=== PATIENT | female | born 1970 | race Caucasian/White ===

== ENCOUNTER 2017-11-28 12:44 | Emergency (ER) | payer OTHER ==
--- NOTE | 2017-11-28 13:33 | ER Document Report ---
ED Medical Screen (RME) - General Chief Complaint: Abdominal Pain Stated Complaint: STOMACH PAIN Time Seen by Provider: 11/28/17 13:23 Mode of Arrival: Ambulatory Information source: Patient Notes: 47 y.o female presents to the ED with adb distention, nausea and RUQ pain since yesterday. She describes the pain as a sharp pain without any radiation. She reports a sour taste in her mouth. She denies any trauma or fall, vomiting, diarrhea or constipation. She denies ever having pain like this in the past. Pt still has her gallbladder. She reports having a partial lobectomy on her LT lung. I have greeted and performed a rapid initial assessment of the patient. A comprehensive ED assessment and evaluation of the patient, analysis of test results, and completion of the medical decision making process will be conducted by additional ED providers. TRAVEL OUTSIDE OF THE [place] IN LAST 30 DAYS: No - Related Data Allergies/Adverse Reactions: No Known Allergies Allergy (Verified 11/28/17 12:46) Past Medical History - General Information source: Patient Pulmonary Medical History: Denies: Hx Tuberculosis Malignancy Medical History: Reports: Hx Lung Cancer Psychiatric Medical History: Denies: Hx Depression Past Surgical History: Reports: Hx Section, Hx Hysterectomy, Hx Tonsillectomy - Immunizations Hx Diphtheria, Pertussis, Tetanus Vaccination: Yes Review of Systems - Review of Systems Constitutional: No symptoms reported EENT: No symptoms reported Cardiovascular: No symptoms reported Respiratory: No symptoms reported Gastrointestinal: See HPI, Abdomen distended, Abdominal pain, Nausea. denies: Diarrhea, Vomiting, Constipation Genitourinary: No symptoms reported Female Genitourinary: No symptoms reported Musculoskeletal: No symptoms reported Skin: No symptoms reported Hematologic/Lymphatic: No symptoms reported Neurological/Psychological: No symptoms reported -: Yes All other systems reviewed and negative Physical Exam - Vital signs Vitals: Temp Pulse Resp BP Pulse Ox 98.1 F 98 22 H 147/111 H 98 11/28/17 12:56 11/28/17 12:56 11/28/17 12:56 11/28/17 12:56 11/28/17 12:56 - Notes Notes: Physical Exam: General: Alert, appears well. HEENT: Normocephalic. Atraumatic. PERRLA. Extraocular movements intact. Oropharynx clear. Neck: Supple. Respiratory: No respiratory distress. Abdominal: No pain with lower palpation. RUQ and epigastric region tender to palpation. Extremities: Moves all four extremities. Neurological: Normal cognition. AAOx4. Normal speech. Psychological: Normal affect. Normal Mood. Skin: Warm. Dry. Normal color. Course - Vital Signs Vital signs: Temp Pulse Resp BP Pulse Ox 98.1 F 98 22 H 147/111 H 98 11/28/17 12:56 11/28/17 12:56 11/28/17 12:56 11/28/17 12:56 11/28/17 12:56 Scribe Documentation - Scribe Written by Shyann:: Mercedez Smith, Shyann 11/28/17 [id number] acting as scribe for :: Oscar
[2017-11-28 14:06] LABS: ABSOLUTE EOSINOPHILS # (AUTO) 0.4 10^3/uL (0.0-0.6); ABSOLUTE LYMPHOCYTES (AUTO) 1.7 10^3/uL (0.5-4.7); ABSOLUTE MONOCYTES (AUTO) 0.4 10^3/uL (0.1-1.4); BASOPHILS % (AUTO) 0.6 % (0-2); EOSINOPHILS % (AUTO) 6.3 % (0-6); HEMOGLOBIN 15.3 g/dL (12.0-15.5); LYMPHOCYTES % (AUTO) 25.6 % (13-45); MEAN CORPUSCULAR HGB CONC 33.4 g/dL (32.0-36.0); MEAN CORPUSCULAR VOLUME 90 fl (80-97); PLATELET COUNT 348 10^3/uL (150-450); RED BLOOD COUNT 5.12 10^6/uL (3.72-5.28); SEGMENTED NEUTROPHILS % (AUTO) 61.5 % (42-78); TOTAL CELLS COUNTED % (AUTO) 100 %; WHITE BLOOD COUNT 6.6 10^3/uL (4.0-10.5)
[2017-11-28 14:17] LABS: APPEARANCE,URINE CLEAR; BILIRUBIN,URINE NEGATIVE (NEGATIVE); COLOR,URINE YELLOW; GLUCOSE, URINE NEGATIVE (NEGATIVE); KETONES,URINE NEGATIVE (NEGATIVE); LEUKOCYTE ESTERASE,URINE NEGATIVE (NEGATIVE); NITRITE,URINE NEGATIVE (NEGATIVE); PROTEIN,URINE NEGATIVE (NEGATIVE); URINE SPECIFIC GRAVITY 1.014; UROBILINOGEN,URINE NEGATIVE mg/dL (<2.0)
[2017-11-28 14:27] LABS: ALANINE AMINOTRANSFERASE 95 U/L (9-52); ALKALINE PHOSPHATASE 145 U/L (38-126); ANION GAP 15 (5-19); ASPARTATE AMINO TRANSFERASE 72 U/L (14-36); BILIRUBIN,DIRECT 0.5 mg/dL (0.0-0.4); BILIRUBIN,TOTAL 0.5 mg/dL (0.2-1.3); BLOOD UREA NITROGEN 9 mg/dL (7-20); CALCIUM 10.2 mg/dL (8.4-10.2); CARBON DIOXIDE 24 mmol/L (22-30); CHLORIDE 105 mmol/L (98-107); GLUCOSE 113 mg/dL (75-110); LIPASE 46.9 U/L (23-300); SODIUM 143.6 mmol/L (137-145)
[2017-11-28 14:29] LABS: POTASSIUM 3.9 mmol/L (3.6-5.0)
--- NOTE | 2017-11-28 15:05 | RADIOLOGY REPORT (SQ) ---
EXAM DESCRIPTION: CHEST SINGLE VIEW COMPLETED DATE/TIME: 11/28/2017 2:43 pm REASON FOR STUDY: RUQ pain COMPARISON: AP chest 02/26/2014 EXAM PARAMETERS: NUMBER OF VIEWS: One view. TECHNIQUE: Single frontal radiographic view of the chest acquired. RADIATION DOSE: NA LIMITATIONS: None. FINDINGS: LUNGS AND PLEURA: No opacities, masses or pneumothorax. No pleural effusion. MEDIASTINUM AND HILAR STRUCTURES: No masses. Contour normal. HEART AND VASCULAR STRUCTURES: Heart normal in size. Normal vasculature. BONES: No acute findings. HARDWARE: None in the chest. OTHER: No other significant finding. IMPRESSION: NO ACUTE RADIOGRAPHIC FINDING IN THE CHEST. TECHNICAL DOCUMENTATION: JOB ID: [id number] [employer]- All Rights Reserved Reading location - IP/workstation name: [email or web address]
--- NOTE | 2017-11-28 15:11 | RADIOLOGY REPORT (SQ) ---
EXAM DESCRIPTION: U/S ABDOMEN LIMITED W/O DOP COMPLETED DATE/TIME: 11/28/2017 2:44 pm REASON FOR STUDY: epigastric and RUQ pain COMPARISON: CT abdomen pelvis 12/26/2013 Right upper quadrant ultrasound 12/04/2011 TECHNIQUE: Dynamic and static grayscale images acquired of the abdomen and recorded on PACS. Additio nal selected color Doppler and spectral images recorded. LIMITATIONS: Midline bowel gas FINDINGS: PANCREAS: Not well seen LIVER: No masses. Echotexture normal. LIVER VASCULATURE: Normal directional flow of the main portal vein and hepatic veins. GALLBLADDER: No stones. Normal wall thickness. No pericholecystic fluid. ULTRASOUND-DETECTED WEEMS'S SIGN: Negative. INTRAHEPATIC DUCTS AND COMMON DUCT: CBD and intrahepatic ducts normal caliber. No filling defects. INFERIOR VENA CAVA: Not well seen AORTA: Limited visualization. No abdominal aortic aneurysm RIGHT KIDNEY: Normal size. Normal echogenicity. No solid or suspicious masses. No hydronephrosis. No calcifications. PERITONEAL AND RIGHT PLEURAL SPACE: No ascites or effusions. OTHER: No other significant findings. IMPRESSION: NORMAL RIGHT UPPER QUADRANT ULTRASOUND. TECHNICAL DOCUMENTATION: JOB ID: [id number] [employer]- All Rights Reserved Reading location - IP/workstation name: [email or web address]
[2017-11-28] MEDS ORDERED: ONDANSETRON 4 MG TAB.RAPDIS PO ONE (15:24)
[2017-11-28] MEDS ORDERED: OXYCODONE-ACETAMINOPHEN 5-325 MG TABLET PO ONE (15:24)
--- NOTE | 2017-11-28 15:31 | ER Document Report ---
ED General - General Chief Complaint: Abdominal Pain Stated Complaint: STOMACH PAIN Time Seen by Provider: 11/28/17 13:23 Mode of Arrival: Ambulatory TRAVEL OUTSIDE OF THE [place] IN LAST 30 DAYS: No - HPI Patient complains to provider of: Right upper quadrant pain and distention since yesterday Onset: Yesterday Onset/Duration: Gradual Quality of pain: Pressure, Sharp Severity: Moderate Pain Level: 4 Context: Patient reports right upper quadrant pain started gradually yesterday and has steadily increased. Also reports distention in that area. Patient does have nausea but no vomiting or diarrhea. Food does not aggravate symptoms. Denies fever. Patient states pain radiates to right upper side but does not radiate through to the back or shoulder. Associated symptoms: Nausea. denies: Fever, Vomiting Exacerbated by: Denies Relieved by: Denies Similar symptoms previously: No Recently seen / treated by doctor: No - Related Data Allergies/Adverse Reactions: No Known Allergies Allergy (Verified 11/28/17 12:46) Past Medical History - General Information source: Patient - Social History Smoking Status: Former Smoker Chew tobacco use (# tins/day): No Frequency of alcohol use: None Drug Abuse: None Lives with: Family Family History: Reviewed & Not Pertinent Patient has suicidal ideation: No Patient has homicidal ideation: No Malignancy Medical History: Reports: Hx Lung Cancer Past Surgical History: Reports: Hx Section, Hx Hysterectomy, Hx Tonsillectomy, Other - Right lobe lobectomy - Immunizations Hx Diphtheria, Pertussis, Tetanus Vaccination: Yes Hx Pneumococcal Vaccination: 09/13/12 Review of Systems - Review of Systems Constitutional: No symptoms reported EENT: No symptoms reported Cardiovascular: No symptoms reported Respiratory: No symptoms reported Gastrointestinal: See HPI Genitourinary: No symptoms reported Musculoskeletal: No symptoms reported Skin: No symptoms reported Hematologic/Lymphatic: No symptoms reported Neurological/Psychological: No symptoms reported -: Yes All other systems reviewed and negative Physical Exam - Vital signs Vitals: Temp Pulse Resp BP Pulse Ox 98.1 F 98 22 H 147/111 H 98 11/28/17 12:56 11/28/17 12:56 11/28/17 12:56 11/28/17 12:56 11/28/17 12:56 - General General appearance: Alert In distress: Mild - HEENT Head: Normocephalic - Respiratory Respiratory status: No respiratory distress Breath sounds: Normal - Cardiovascular Rhythm: Regular Heart sounds: Normal auscultation - Abdominal Inspection: Normal Distension: Distended - Per patient, but right upper quadrant about the same as the left upper quadrant Bowel sounds: Hyperactive Tenderness: Tender - Right upper quadrant and epigastric area. - Back Back: Normal - Extremities General upper extremity: Normal inspection General lower extremity: Normal inspection - Neurological Neuro grossly intact: Yes Cognition: Normal Orientation: AAOx4 - Psychological Associated symptoms: Anxious - Skin Skin Temperature: Warm Skin Moisture: Dry Skin Color: Normal Course - Re-evaluation Re-evalutation: 11/28/17 15:33 CBC and urine normal. Normal right upper quadrant ultrasound. Some elevation in AST, ALT, and alk phos. this was discussed with the patient. 11/28/17 16:09 Patient states she has some relief from the pain medications and Zofran given. After reviewing her medical history here at the hospital, she was seen before in the past for right upper quadrant pain. When asked about this, patient says she has she was and they sent her for a HIDA scan and it was normal. - Vital Signs Vital signs: Temp Pulse Resp BP Pulse Ox 98.1 F 98 22 H 147/111 H 98 11/28/17 12:56 11/28/17 12:56 11/28/17 12:56 11/28/17 12:56 11/28/17 12:56 - Laboratory Result Diagrams: 11/28/17 13:49 11/28/17 13:49 Laboratory results interpreted by me: 11/28/17 11/28/17 13:49 13:49 Eosinophils % 6.3 H Glucose 113 H Direct Bilirubin 0.5 H AST 72 H ALT 95 H Alkaline Phosphatase 145 H Discharge - Discharge Clinical Impression: RUQ pain Condition: Good Disposition: HOME, SELF-CARE Instructions: Antinausea Medication ([facility]), Oral Narcotic Medication ([facility]), Abdominal Pain ([facility]) Additional Instructions: Take medications as prescribed Follow-up with your PCM tomorrow to find out who your primary care doctor is for follow-up Return if worsens and as needed Prescriptions: Ondansetron [Zofran Odt 4 mg Tablet] 1 - 2 tab PO Q4HP PRN #15 tab.rapdis PRN Reason: Oxycodone HCl/Acetaminophen [Percocet 5-325 mg Tablet] 1 - 2 tab PO ASDIR PRN # 15 tablet PRN Reason: Referrals: LESLEY MCCAULEY, [facility] [Primary Care Provider] - Follow up as needed
[2017-11-28 16:22] VITALS: BP 119/96
== END 2017-11-28 16:21 | disposition home or self-care (01) ==
LOC: ER 12:44
DX: R10.11 Right upper quadrant pain (principal); R10.811 Right upper quadrant abdominal tenderness; R10.816 Epigastric abdominal tenderness; R11.0 Nausea; R74.0 Nonspecific elevation of levels of transaminase and lactic acid dehydrogenase [LDH]; Z87.891 Personal history of nicotine dependence; Z85.118 Personal history of other malignant neoplasm of bronchus and lung
CPT/HCPCS: 99284; 36415; 83690; 84703; 85025; 80053; 81001; 71045; 76705; S0119